=== PATIENT | male | born 1960 | race Caucasian/White ===

== ENCOUNTER 2019-10-20 13:50 | Observation (INO) | payer OTHER, SELFPAY ==
[2019-10-20] VITALS (9 sets, daily range): BP systolic 102–174; BP diastolic 61–98; PULSE 75–105; RESP 12–20; TEMP 36.3–37.3; O2SAT 95–100; BMI 26.0; BMI 24.7
--- NOTE | ~2019-10-20 | XR_ITS ---
EXAMINATION: XR hand LT min 3V EXAM DATE: 10/20/2019 14:59 INDICATION: Initial encounter following injury, with pain of the left hand. TECHNIQUE: Left hand frontal, lateral and oblique projections obtained and reviewed. There is no tiffanie or study for comparison. FINDINGS: Left metacarpal bones are unremarkable. There is acute comminuted fracture of the left fo urth middle phalangeal shaft with moderate amount of displacement. No appreciable angulation. Uncerta in whether or not this is a closed or open injury, clinical correlation required. Overlying soft tiss ue swelling. No other acute findings. Multiple tiny calcific or metallic densities overlying this digit, could be within the overlying band age. IMPRESSION: 1. Acute comminuted displaced left fourth middle phalangeal fracture. Reviewed, dictated and finalized at location A. ITY CONTROL COORDINATOR
--- NOTE | ~2019-10-20 | XR_ITS ---
EXAMINATION: XR surgery orthopedic DATE: 10/20/2019 20:20 INDICATION: ORIF left left fourth digit fracture TECHNIQUE: 3 fluoroscopic spot images of the left fourth digit were obtained during procedure perform ed by Dr. Stephens. Radiologist was not present for the imaging or procedure. The amount of fluoroscopy time used during this procedure was 0.6 minutes. COMPARISON: None. FINDINGS: Interval open reduction and internal fixation of a comminuted extra articular fracture of t he left fourth middle phalanx with dorsal plate and screws and likely additional interfragmentary scr ew. Alignment post fixation appears near-anatomic. Again seen is mild osteoarthritis at the fourth pr oximal interphalangeal and fourth and fifth distal interphalangeal joints. No other fractures identif ied. IMPRESSION: 1. Near-anatomic alignment post reduction and internal fixation of a comminuted extra articular fract ure of the left fourth middle phalanx. Reviewed, dictated and finalized at location A. Y FEEDER IMPRESSION: 1. Near-anatomic alignment post reduction and internal fixation of a comminuted extra articular fracture of the left fourth middle phalanx.
--- NOTE | 2019-10-20 14:40 | PC.NURSE ---
PT NOTED TO HAVE RING ON L 4TH FINGER, FINGER SWELLING NOTED. PT STATES THAT HE TRIED TO GET THE RING OFF AFTER THE ACCIDENT BUT WAS UNABLE TO. LETA LANZA AND SHANNA USED RING CUTTER AT BEDSIDE TO REMOVE RING.
--- NOTE | 2019-10-20 14:54 | PC.NURSE ---
PT WASHED HAND AND WOUNDS REDRESSED BY RN PRIOR TO LEAVING TO XRAY.
--- NOTE | 2019-10-20 15:01 | ED.UPPEXIN ---
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 He states that he was carrying a 80lbs brick when he tripped over his shoelaces, causing him to fall, and drop the brick on his lt hand and fingers. He reports associated pain, swelling, and 2 lacerations. He notes that he is unsure of when his last tetanus shot was. He denies any N/V/D, ABD pain, SOB, CP, numbness, or tingling. MD complaint: injury to: left, hand and finger Onset (ago): minute(s) Other Extremity Injury: Left: fingers and hand Other injuries: none Context: fall, direct blow, laceration, crush (dropped 80 lbs brick on hand) and injury Associated symptoms: other (pain, swelling, and 2 lacerations) Related Data Allergies Allergy/AdvReac Type Severity Reaction Status Date / Time No Known Allergies Allergy Unverified 01/06/19 19:34 Review of Systems Review of Systems: All systems reviewed & are unremarkable except as noted in HPI and below Cardiovascular: Cardiovascular: Denies chest pain Respiratory: Respiratory: Denies dyspnea Gastrointestinal: Gastrointestinal: Denies abdominal pain, Denies diarrhea, Denies nausea and Denies vomiting Musculoskeletal: Musculoskeletal: Reports other (lt hand and finger pain, swelling, and 2 lacerations) Neurologic: Denies numbness and Denies tingling PMFSH Past Medical History Medical History (Updated 10/20/19 @ 15:38 by Papito Aguiar) Healthy adult male Surgical History Surgical History (Updated 10/20/19 @ 15:38 by Papito Aguiar) No history of previous surgery Social History Social History (Updated 10/20/19 @ 15:38 by Papito Aguiar) Smoking status: Unknown if ever smoked [facility] Exam Narrative: Exam Narrative: General appearance: Well-developed, well-nourished Skin: Normal color Neck: Supple, nontender Chest and respiratory: Airway patent, no respiratory distress, no accessory muscle use Heart: Regular rate/rhythm Vascular: Normal peripheral pulses, normal capillary refill. Musculoskeletal: Normal range of motion, nontender back, left hand showed dorsal scattered abrasion, severe diffuse tenderness and swelling of left ring finger, 1.5 cm laceration, Lungaggregate none at the mid phalanx of left ring finger. Neurologic: Alert and oriented ?3, GRAPHIC ARTS INSTRUCTOR is normal as tested, no gross motor deficit Course Consultations Consultation #1: Discussed case with Dr. Stephens (Plastic Surgery). States that they will look at the x-rays and call back. Date: 10/20/19 Time: 15:10 Consultation #2: Discussed case with Dr. Stephens (Plastic Surgery). [facility] if [facility] the [facility]. Date: 10/20/19 Time: 15:17 Consultation #3: [facility], who stated that they do not have any beds available for the pt. Date: 10/20/19 Time: 15:20 Additional Consultation(s): Discussed case with Dr. Stephens (Plastic Surgery). States that they will take the pt to the OR in the next few hours. 10/20/19 15:24 Vital Signs Vital signs: Vital Signs Temperature 36.9 C 10/20/19 14:20 Pulse Rate 104 H 10/20/19 14:20 Respiratory Rate 19 10/20/19 14:20 Blood Pressure 169/96 H 10/20/19 14:20 Pulse Oximetry 100 10/20/19 14:20 Temperature 36.9 C 10/20/19 14:20 Pulse Rate 104 H 10/20/19 14:20 Respiratory Rate 19 10/20/19 14:20 Blood Pressure 169/96 H 10/20/19 14:20 Pulse Oximetry 100
[2019-10-20] MEDS: MORPHINE SULFATE 4 MG/ML INJ IV PUSH (15:24)
[2019-10-20] MEDS: ONDANSETRON INJ 4 MG/2 ML VIAL IV PUSH ×2 (15:24→22:35)
[2019-10-20] MEDS: TETANUS,DIPHTHERIA,AC PERTUSSIS ADULT (0.5 ML) BOOSTRIX IM (15:25)
[2019-10-20] MEDS: ceFAZolin 2 GM/D5W 50 ML 2 GM/50 ML BAG IVPB ×2 (15:43→22:08)
[2019-10-20] MEDS: LACTATED RINGERS 1,000 ML 30 ML IV CONT ×2 (16:45→20:39)
--- NOTE | 2019-10-20 17:24 | WPDANESEPPF ---
Anes - Initial Pre Proc Eval Procedure: Operation Date: 10/20/19 17:30 Proposed Procedures p OPEN REDUCTION INTERNAL FIXATION LEFT RING FINGER - Baldev Stephens MD Date/Time: 10/20/19 17:24 Surgeon: Baldev Stephens MD Pre Op Diagnosis: left hand injury Patient Data Age: 59 Gender: M Height: 5 ft 9 in Weight: 80 kg Last Vital Signs Temp 37.3 C 10/20/19 16:37 Pulse 75 10/20/19 16:39 Resp 18 10/20/19 16:39 BP 154/78 H 10/20/19 16:39 Pulse Ox 100 10/20/19 16:39 Allergies Allergy/AdvReac Type Severity Reaction Status Date / Time No Known Allergies Allergy Unverified 01/06/19 19:34 Home Medications Medication Instructions Recorded Confirmed Type No Home Medications 10/20/19 10/20/19 History Patient hx anesthesia problems: none Family hx anesthesia problems: none PMFSH Past Medical History Medical History JASPAL (obstructive sleep apnea) Smoker Tobacco abuse Surgical History Surgical History No history of previous surgery Social History Social History Smoking status: Unknown if ever smoked Anes - Eval Final PreProcedure Day of Procedure 10/20/19 17:24 Patient weight: overweight Heart: regular rate and rhythm Lungs: decreased breath sounds Airway: Mallampati scale class II Neurological: alert and oriented Last oral intake: 6 hours ASA classification: III Emergent: yes Anesthetic plan: proceed Anesthesia type and monitoring: general LMA and standard monitoring Informed Consent: The patient's anesthetic plan and its attendant risks and benefits were discussed with the patient/family/POA. Questions were solicited and answers provided to the satisfaction of the patient/family/POA.
[2019-10-20] MEDS: LIDO 1%/EPINEPHRINE 1:100,000 20 ML VIAL INFILTRATE (18:30)
[2019-10-20] MEDS: BACITRACIN OINTMENT 15 GM TUBE 1 APPLIC TOPICAL (18:33)
--- NOTE | 2019-10-20 20:40 | P.OPB_ITS ---
Procedure Note - Brief Procedure Note - Brief Date of procedure: 10/20/19 Pre-op diagnosis: left hand injury Comminuted displaced open fracture of the middle phalanx of the left ring finger. Post-op diagnosis: same Procedure performed: ORIF with phalangeal head plate and 5 1.5 mm screws Implants: Modular Hand tray phalangeal head plate L. 1.5 mm screws of various lengths. Anesthesia: GETA Surgeon: Baldev Stephens MD Merchandise Pickup/Receiving Associate: Sherly Estimated blood loss (mL): 5 Tourniquet time (min): 109 Drains: No Packing: No Pathology: none sent Complications: None Condition: stable Disposition: PACU
--- NOTE | 2019-10-20 21:30 | PM.PROC ---
Procedure Note - Detailed Date of procedure: 10/20/19 Pre-op diagnosis: post op orif of finger Open comminuted displaced fracture of the middle phalanx left ring finger Post-op diagnosis: same Procedure performed: ORIF of the comminuted displaced fracture of the middle phalanx left ring finger with a Phalengeal head plate and 5 screws. Description of procedure: I met the patient in the surgical holding area. He had been in the emergency room since arriving here after his injury. He had received IV Ancef. I had reviewed the x-rays prior to meeting him. We discussed his general health; he is in good health. He sees a doctor annually at the [facility]. The [facility] was contacted today by the ER MD. He was told [facility] had no beds and could not accept him. He is a smoker. He injured his hand today while caring and 80 lb brick. He dropped it. That caused various scrapes to his hand and an open fracture of the middle phalanx of the right ring finger. He is up-to-date on his Tdap. Is he was alert. I explained to him that our goal would be to repair this fracture. It would be to identify any other injuries to the finger. He had no numbness at the present time. The color of the finger was good. I explained that the repair would be done with screws and plates. It is very likely that he would have some stiffening of this finger and it may never work exactly properly. He has a risk of getting infection in the soft tissue or infection in the bone. These problems could limit the use of this digit for the rest of his life. He indicated he wished we would go ahead and take care of it. The patient was wheeled into the operating room and placed supine on the operating table. A time-out was held and confirmed. He was given general endotracheal anesthesia and the left hand and forearm were prepped and draped in the usual fashion. The tourniquet was inflated to 250 mmHg. The digit was infiltrated with 1% lidocaine with epinephrine. This was augmented at the end of the case with about 7 cc of 0.5% Marcaine plain. The tourniquet was inflated to 250 mmHg. The dorsal midline incision was made throughout the full length of the middle phalanx. The skin flaps were carefully elevated. The tissue had already undergone some separation of planes. The ulnar lateral band had been disrupted completely and we were not able to repair that. There is a full-thickness skin laceration on the palmar side that did not penetrate through the subcutaneous tissue. This area was then irrigated with 300 cc of bacitracin saline. The bone fragments were identified and stripped of periosteum in certain places to allow complete visualization of the fractures. There were 4 main fragments. Some smaller fragments were on the palmar aspect and these were not specifically manipulated or fixed. The larger fragments could be pieced together with traction on the finger. We chose a plate from the modular handset and fixed it to the proximal fragment eventually with 2 screws. We proceeded to fix the plate to the distal fragment and then position the smaller fragments to make up the diaphysis. A screw was placed in each of these. The final construct appeared stable and accurately positioned. The wound was irrigated again. The dorsal and palmar skin wounds were closed with running 5 0 nylon suture no splint was applied. A soft bandage was placed and he is discharged from the operating room stable condition. Total tourniquet time was 109 minutes. Estimated blood loss was 5 milliliter. Implants: Five 1.5 mm screws of various length and a left phalangeal head plate all from the modular handset Surgeon: Baldev Stephens MD
--- NOTE | 2019-10-20 22:18 | ADMGEN ---
This patient, Mark Art, was admitted to [facility] Surg Room 309-01. Patient/family oriented to hospital policies and general routines including ID bracelet, bed and alarms, visiting hours, pain management, procedures, bathroom and other care routines, personal items, smoking policy, room service/diet, and visiting hours. Valuables list has been completed. Information on how to activate the Rapid Response Team has been discussed. Patient/Family are encouraged to report perceived risks to care and to ask questions if they do not understand what they are told or what they should do.
[2019-10-20] MEDS: MORPHINE SULFATE 2 MG/ML INJ IV PUSH (22:35)
[2019-10-21 02:00] VITALS: BP 139/72; PULSE 83; RESP 18; TEMP 36.7; O2SAT 97
[2019-10-21] MEDS: MORPHINE SULFATE 2 MG/ML INJ IV PUSH (03:08)
[2019-10-21 06:00] VITALS: BP 121/66; PULSE 79; RESP 18; TEMP 36.6; O2SAT 98
[2019-10-21 08:19] VITALS: BP 129/55; PULSE 84; RESP 16; TEMP 36.7; O2SAT 99
--- NOTE | 2019-10-21 08:50 | PM.PROC ---
Procedure Note - Detailed Date of procedure: 10/21/19 Pre-op diagnosis: post op orif of finger Post-op diagnosis: other Surgeon: Baldev Stephens MD
--- NOTE | 2019-10-21 09:25 | PC.NURSE ---
Patient refusing flu shot
--- NOTE | 2019-11-14 11:08 | PM.IMHP ---
H&P: HPI History of Present Illness Chief complaint: post op orif of finger Narrative: Mark Art is a 59 year old male who injured his left ring finger today at work. He was admitted through the ED this morning and found to have an open comminuted fracture of the middle phalanx. There were associated other scrapes to the hand. This injury occurred at work when he tripped while carrying a large block apparently wearing around 80 lb. It pinched his finger to the ground. I reviewed the x-rays and determined that he needed to have surgery under general anesthesia on the same day. [facility] Past Medical History Medical History JASPAL (obstructive sleep apnea) Smoker Tobacco abuse Surgical History Surgical History No history of previous surgery Family History Family History (Updated 10/20/19 @ 22:21 by Mykel David RN) Father Cancer Mother Cancer Sibling Cancer Heart attack Diabetes mellitus Social History Social History Years smoked: 30 Smoking status: Current every day smoker Tobacco type: cigarettes Alcohol intake: current Drinks per week: 6 Substance use: current Substance use type: marijuana Last use: 10/19/19 Gender identity (if verbalized by the patient): Male Spiritual care concerns: No Agree to blood products: Yes Meds Home Medications and Allergies Home Medications Medication Instructions Recorded Confirmed Type No Home Medications 10/20/19 10/20/19 History hydrocodone-acetaminophen 1 tablet PO Q4H PRN #16 tablet MDD 10/21/19 Rx 6 Allergies Allergy/AdvReac Type Severity Reaction Status Date / Time No Known Allergies Allergy Unverified 01/06/19 19:34
--- NOTE | 2019-11-14 12:10 | P.HP_ITS ---
H&P: HPI History of Present Illness Chief complaint: post op orif of finger Narrative: Mark Art is a 59 year old male who injured his left ring finger today work. He apparently dropped and 80 lb block onto his left ring finger causing an open comminuted fracture of the middle phalanx. I reviewed the X- rays and determined that he needed to be taken to surgery today to clean this up and make repairs. I met the patient in the holding area. I described the fracture to him and explained the type of repair is we would hope to make. I also explained the possible complications which would include infection of the bone, stiffness of the related joints, extended time off work and possible need for additional surgery. The patient wished to proceed with the surgery today. I explained that this would decrease his chance of a poor outcome or wound infection. He has been NPO for several hours. He was brought up-to-date with his de TDAB. He was given IV Ancef. He was given morphine and Zofran. This was done while in the emergency room. He does not take other medication on a regular basis. Review of Systems Review of Systems: All systems reviewed & are unremarkable except as noted in HPI and below Constitutional: Constitutional: Reports no additional constitutional complaints PMFSH Past Medical History Medical History JASPAL (obstructive sleep apnea) Smoker Tobacco abuse Surgical History Surgical History No history of previous surgery Family History Family History (Updated 10/20/19 @ 22:21 by Mykel David RN) Father Cancer Mother Cancer Sibling Cancer Heart attack Diabetes mellitus Social History Social History Years smoked: 30 Smoking status: Current every day smoker Tobacco type: cigarettes Alcohol intake: current Drinks per week: 6 Substance use: current Substance use type: marijuana Last use: 10/19/19 Gender identity (if verbalized by the patient): Male Spiritual care concerns: No Agree to blood products: Yes Meds Home Medications and Allergies Home Medications Medication Instructions Recorded Confirmed Type No Home Medications 10/20/19 10/20/19 History hydrocodone-acetaminophen 1 tablet PO Q4H PRN #16 tablet MDD 10/21/19 Rx 6 Allergies Allergy/AdvReac Type Severity Reaction Status Date / Time No Known Allergies Allergy Unverified 01/06/19 19:34 Exam Narrative: Exam Narrative: he is alert and cooperative. He participates appropriately in the discussion regarding his surgery. Extrem: Other: His hand was bandaged at the time I saw him in the holding area. The tip of the finger was pink. He noted that he was able to flex and extend to a small degree within his bandage. He felt sensation was intact. Assessment and Plan Additional Plan The diagnosis is open comminuted fracture of the middle phalanx of the left ring finger with associated scrapes to the hand. Plan: open reduction and internal fixation of the left ring finger under general anesthesia
--- NOTE | 2019-11-17 09:37 | PM.DS ---
DS: Diagnosis Admitting Diagnosis Admitting Diagnosis: Open comminuted displaced fracture of the middle phalanx of the left ring finger. DS: Summary Hospital Course Reason for hospitalization: Post op pain and observation of wound site. Hospital Course: The patient was admitted to the ED on the day of his injury. He was scheduled for surgical treatment later in the day. His surgery was lengthy and was finished in the evening. He was kept overnight for extended recovery to manage his pain and wound. He was discharged the following day without further problem. Status at Discharge Cognitive/behavioral status at discharge: Patient is alert and appropriate. Functional status at discharge: independent ambulation Overall status at discharge: other (Except for affected hand, patient is at baseline.) Time Spent with Patient Time attestation: Total time spent providing and/or coordinating discharge services: Time spent: Less than 30 minutes Specific discharge activities: Pt is not to change bandage. He is to use hand as tolerated. He has a phone number to contact Dr Stephens for follow up in 5 days. He has a prescription for analgesic. Discharge Plan Discharge Attending physician on discharge: Baldev Stephens Consulting providers: Doug Price ; Lan Oneil Discharging Clinician: Baldev Stephens Anticipated Discharge Date/Time: 10/21/19 10:15 Patient Disposition: Home, Self-Care Activity: as tolerated Diet: regular Wound Care Instructions: other - see discharge instructions Discharge Instructions: Keep dressing on until Saturday. At that time dressing may be removed and the wound sites may be washed with soap and water. Replace the dressing with a simple bandage such as bandaids or light gauze. Pt is asked to flex and extend his digit frequently through the day. Elevate the extremity as often as possible to relieve swelling. Bacitracin ointment should applied to the stitches after the bandage is removed and to other open wounds daily. Tylenol, Aleve or Ibuprofen may utilized to help with pain control A prescription for hydrocodone has been sent to your pharmacy. No additional antibiotics are required. Patient Instructions: Antibiotic Form, How to Stop Smoking (DC) Stand Alone Forms: General Discharge Information Follow-up/Referrals: Baldev Stephens MD [Physician] - 1 Week [facility] [Primary Care Provider] - Discharge Medications: New hydrocodone-acetaminophen 7.5-325 mg tablet 1 tablet PO Q4H MDD 6 PRN (Reason: pain) Qty: 16 RF: 0 No Action No Home Medications RF: 0 Date of admission: 10/20/19 21:27 Primary Care Provider: [facility] Admitting Provider: Baldev Stephens Discharge Date/Time: 10/21/19 10:04 Attending physician on admission: Baldev Stephens Condition: Stable
== END 2019-10-21 10:04 | disposition home or self-care (01) ==
LOC: ANHED 16:10 → ANHSURGERY 16:24 → ANH3MEDSUR 21:43
PROVIDERS: Admitting Provider Plastic Surgery; Emergency Provider Emergency Medicine; Visit Provider Plastic Surgery
PROC: (CPT 26735; principal; 2019-10-20 17:30)
DX: S62.625B Displaced fracture of middle phalanx of left ring finger, initial encounter for open fracture (principal); W20.8XXA Other cause of strike by thrown, projected or falling object, initial encounter; W01.0XXA Fall on same level from slipping, tripping and stumbling without subsequent striking against object, initial encounter; G89.18 Other acute postprocedural pain; G47.33 Obstructive sleep apnea (adult) (pediatric); F17.200 Nicotine dependence, unspecified, uncomplicated; Z23 Encounter for immunization
CPT/HCPCS: 26735; 73130; 76000; 90471; 90715; 96361; 96365; 96374; 96375; 96376; 99285; A9270; C1713; G0378; J0690; J1100; J2250; J2270; J2405; J2704; J3010; J7120

== ENCOUNTER 2019-12-03 13:12 | Outpatient (CLI) | payer OTHER, SELFPAY ==
--- NOTE | ~2019-12-03 | XR_ITS ---
EXAMINATION: XR finger 4th LT min 2V DATE: 12/03/2019 13:29 INDICATION: Follow-up surgery for comminuted fracture of the left fourth middle phalanx. TECHNIQUE: Dorsal palmar, lateral and 2 oblique views of the left fourth digit were obtained COMPARISON: 10/20/2019 FINDINGS: Interfragmentary screw and dorsal plate and screw fixation of a comminuted extra articular fracture o f the left fourth middle phalanx. Alignment of the main fragments including the proximal and distal a rticular fragments appears near-anatomic. There is a small fragment along the palmar/ulnar side of th e proximal diaphysis which is not included within the fixation and which is displaced up to 3 mm palm ar from the normal cortical margin. No definitive callus formation yet evident. No other fractures id entified. Unchanged mild polyarticular osteoarthritis at the fourth proximal interphalangeal and thir d-fifth distal interphalangeal joints. Soft tissue swelling about the fourth digit. IMPRESSION: 1. No definitive productive changes of healing yet apparent at an internally fixed fracture of the le ft fourth middle phalanx the main fragments which appear near-anatomic alignment. Reviewed, dictated and finalized at location A. LOADER IMPRESSION: 1. No definitive productive changes of healing yet apparent at an internally fi xed fracture of the left fourth middle phalanx the main fragments which appear near-anatomic alignment.
== END 2019-12-03 13:13 | disposition home or self-care (01) ==
LOC: ANHIMG 13:17
PROVIDERS: Visit Provider Plastic Surgery
DX: S62.625D Displaced fracture of middle phalanx of left ring finger, subsequent encounter for fracture with routine healing (principal); X58.XXXD Exposure to other specified factors, subsequent encounter
CPT/HCPCS: 73140

== ENCOUNTER 2020-01-11 12:43 | Outpatient (CLI) | payer OTHER, SELFPAY ==
--- NOTE | ~2020-01-11 | XR_ITS ---
EXAMINATION: XR finger 4th LT min 2V EXAM DATE: 01/11/2020 12:58 INDICATION: Fracture of the ring finger follow-up. TECHNIQUE: Left fourth finger frontal, lateral and oblique projections obtained and reviewed. Compar juanis is made to prior examination from 12/03/2019. FINDINGS: Again there is comminuted fracture of the left fourth middle phalanx. Orthopedic plate and supporting screws are in position. There are still gaps between some fracture fragments, but the fra cture margins are indistinct, evidence of routine healing. Alignment is near-anatomic. IMPRESSION: Left fourth middle phalangeal ORIF with evidence of early routine healing. Reviewed, dictated and finalized at location B.
== END 2020-01-11 12:44 | disposition home or self-care (01) ==
LOC: ANHIMG 12:49
PROVIDERS: Visit Provider Plastic Surgery
DX: S62.624D Displaced fracture of middle phalanx of right ring finger, subsequent encounter for fracture with routine healing (principal); X58.XXXD Exposure to other specified factors, subsequent encounter
CPT/HCPCS: 73140

== ENCOUNTER 2020-02-08 14:06 | Outpatient (CLI) | payer OTHER, SELFPAY ==
--- NOTE | ~2020-02-08 | XR_ITS ---
EXAMINATION: XR finger 4th LT min 2V EXAM DATE: 02/08/2020 14:29 INDICATION: ORIF on 10/20/2019. Follow-up. TECHNIQUE: Left fourth finger frontal, lateral and oblique projections obtained and reviewed. Compar juanis is made to prior examination from 01/11/2020. FINDINGS: Orthopedic plate, supporting screws in the left fourth middle phalanx, hardware intact and bridging subacute comminuted fractures. There is been some interval healing of the fracture margins but still persistent incomplete solid bone bridging. Consider continued follow-up. There are no bony erosions identified. There is soft tissue swelling over the finger. IMPRESSION: Subacute surgically fixed left fourth middle phalangeal fracture with some evidence of i nterval healing but consider follow-up. Reviewed, dictated and finalized at location A. IMPRESSION: Subacute surgically fixed left fourth middle phalangeal fracture w ith some evidence of interval healing but consider follow-up.
== END 2020-02-08 14:07 | disposition home or self-care (01) ==
LOC: ANHIMG 14:13
PROVIDERS: Visit Provider Plastic Surgery
DX: S62.623D Displaced fracture of middle phalanx of left middle finger, subsequent encounter for fracture with routine healing (principal)
CPT/HCPCS: 73140